=== PATIENT | female | born 1985 | race Caucasian/White ===

== ENCOUNTER 2017-11-02 20:47 | Emergency (ER) | payer BC ==
[~2017-11-02] VITALS: Ht 167.6 cm; Wt 99.8 kg
[~2017-11-02 20:47] MED LIST: BACTRIM DS TAB1 EACH PO; BIRTHCONTROL; NORCO 5-325 TA1 EACH PO
[2017-11-02] MEDS ORDERED: REXULTI2 MG (21:00)
[2017-11-02] MEDS ORDERED: CLONAZEPAM 0.50.5 M1 (21:01)
[2017-11-02] MEDS ORDERED: NUVIGIL50 MG (21:02)
[2017-11-02] MEDS ORDERED: ADDERALL 20 MG20 MG (21:02)
[2017-11-02] MEDS ORDERED: PROZAC20 MG (21:02)
[2017-11-02] MEDS ORDERED: IBUPROFEN 800800 M1 PO (21:45)
[2017-11-02] MEDS ORDERED: HYDROCODONE-AP1 EAC6 PO (21:45)
[2017-11-02 22:26] VITALS: BP 132/84
== END 2017-11-02 22:20 | disposition home or self-care (01) ==
LOC: M.ERS 20:47
DX: S42.402A Unspecified fracture of lower end of left humerus, initial encounter for closed fracture (principal); G43.909 Migraine, unspecified, not intractable, without status migrainosus; F32.9 Major depressive disorder, single episode, unspecified; F98.8 Other specified behavioral and emotional disorders with onset usually occurring in childhood and adolescence; Z86.14 Personal history of Methicillin resistant Staphylococcus aureus infection; W01.0XXA Fall on same level from slipping, tripping and stumbling without subsequent striking against object, initial encounter; Y93.89 Activity, other specified; Y92.89 Other specified places as the place of occurrence of the external cause; Y99.8 Other external cause status

== ENCOUNTER → 2017-11-22 | Outpatient (CLI) | payer BC ==
[~2017-11-22] MED LIST changes: +ADDERALL 20 MG20 MG; +CLONAZEPAM 0.50.5 M1; +HYDROCODONE-AP1 EAC6 PO; +IBUPROFEN 800800 M1 PO; +NUVIGIL50 MG; +PROZAC20 MG; +REXULTI2 MG
== END ==
LOC: M.MRI 13:02
DX: S42.442A Displaced fracture (avulsion) of medial epicondyle of left humerus, initial encounter for closed fracture (principal); S46.812A Strain of other muscles, fascia and tendons at shoulder and upper arm level, left arm, initial encounter; S53.432A Radial collateral ligament sprain of left elbow, initial encounter; S53.442A Ulnar collateral ligament sprain of left elbow, initial encounter; M77.12 Lateral epicondylitis, left elbow; M25.422 Effusion, left elbow; R60.0 Localized edema; W19.XXXA Unspecified fall, initial encounter; Y93.89 Activity, other specified; Y92.89 Other specified places as the place of occurrence of the external cause; Y99.8 Other external cause status